=== PATIENT | female | born 1990 | race Caucasian/White ===

== ENCOUNTER 2019-08-27 12:45 | Emergency (ER) | payer MEDICAID ==
[2019-08-27] MEDS ORDERED: ASPIRIN 81 MG TABLET, CHEWABLE PO ONE (13:21)
--- NOTE | 2019-08-27 13:24 | ER Document Report ---
ED Medical Screen (RME) - General Chief Complaint: Palpitations Stated Complaint: HEART PALPITATIONS Time Seen by Provider: 08/27/19 13:21 Mode of Arrival: Ambulatory Information source: Patient Notes: 28-year-old female presented to ED for palpitations that come and go. She states they have been maybe once or twice a day for the last 2 weeks but today she has had a multiple times. She states it feels like her heart is feeling normal and an ultrasound 0 pound will fast real hard to get very dizzy nauseated with a severe headache. 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 She states his medical surgical history is ovarian cyst removal and her tonsils removed she states she does smoke 1 cigarette a day does not drink or use any illicit drugs. She is alert oriented respirations regular and unlabored speaking in full sentences. I have greeted and performed a rapid initial assessment of this patient. A comp rehensive ED assessment and evaluation of the patient, analysis of test results and completion of medical decision making process will be conducted by an additional ED providers. Past Medical History Endocrine Medical History: Denies: Hx Diabetes Mellitus Type 2, Hx Hypothyroidism - Immunizations Hx Diphtheria, Pertussis, Tetanus Vaccination: Yes Physical Exam - Vital signs Vitals: Temp Pulse Resp BP Pulse Ox 98.6 F 72 18 154/103 H 100 08/27/19 12:56 08/27/19 12:56 08/27/19 12:56 08/27/19 12:56 08/27/19 12:56 Course - Vital Signs Vital signs: Temp Pulse Resp BP Pulse Ox 98.6 F 72 18 154/103 H 100 08/27/19 12:56 08/27/19 12:56 08/27/19 12:56 08/27/19 12:56 08/27/19 12:56
--- NOTE | 2019-08-27 14:18 | ER Document Report ---
ED Cardiac - General Chief Complaint: Chest Pain Stated Complaint: HEART PALPITATIONS Time Seen by Provider: 08/27/19 13:21 Primary Care Provider: HELLEN GIBSON MD [ACTIVE STAFF] - Follow up tomorrow Mode of Arrival: Ambulatory - [facility] Notes: Patient is a 28-year-old female that presents to the emergency department for chief complaint of palpitations. Patient reports palpitations over the last 3 weeks. She states that until today they were occurring 1-2 times a day. She states today she has had 4 episodes. She describes it at a pounding sensation in her left chest that lasts for a few seconds. She has associated shortness of breath nausea and lightheadedness. She denied any full syncopal episodes. She states after a few seconds it stops and she feels normal again. Currently patient states she is asymptomatic and not experiencing the symptoms. She states she has been seen at another emergency room about a week ago and told she had a normal EKG. She is currently undergoing chemotherapy for a sarcoma on her leg and states that her last chemo medication was Wednesday. She is not due for repeat chemotherapy until November 2019. She denies cough, congestion, fevers, vomiting, and peripheral edema. Patient does report her sister and mother have blood clots. Past Medical History: Sarcoma Past Surgical History: , ovarian cyst removal Social History: Occasional tobacco. Occasional alcohol. Denies drug use. Family History: Reviewed and noncontributory for presenting illness Allergies: Reviewed, see documented allergy list. REVIEW OF SYSTEMS: CONSTITUTIONAL : No fever No chills No diaphoresis No recent illness EENT: No vision changes No congestion No sore throat CARDIOVASCULAR: No chest pain palpitations RESPIRATORY: shortness of breath No cough No difficulty breathing GASTROINTESTINAL: No abdominal pain nausea No vomiting No diarrhea GENITOURINARY: No dysuria No hematuria No difficulty urinating MUSCULOSKELETAL: No back pain No leg pain No arm pain SKIN: No rashes No lesions LYMPHATIC: No swollen, enlarged glands. NEUROLOGICAL: lightheadedness No headache No weakness No paresthesias PSYCHIATRIC: No anxiety No depression PHYSICAL EXAMINATION: Vital signs reviewed, nursing noted reviewed. GENERAL: Well-appearing, well-nourished and in no acute distress. HEAD: Atraumatic, normocephalic. EYES: Eyes appear normal, extraocular movements intact, sclera anicteric, conjunctiva are normal. ENT: nares patent, oropharynx clear without exudates. Moist mucous membranes. NECK: Normal range of motion, supple without lymphadenopathy LUNGS: Breath sounds clear to auscultation bilaterally and equal. No wheezes rales or rhonchi. HEART: Regular rate and rhythm without murmurs, +2/4 bilateral radial pulses ABDOMEN: Soft, nontender, normoactive bowel sounds. No rebound, guarding, or rigidity. No masses appreciated. EXTREMITIES: Nontender, good range of motion, no pitting or edema. NEUROLOGICAL: No focal neurological deficits. Moves all extremities spont aneously Motor and sensory grossly intact on exam. PSYCH: Normal mood, normal affect. SKIN: Warm, Dry, normal turgor, no rashes or lesions noted on exposed skin - Related Data Allergies/Adverse Reactions: No Known Allergies Allergy (Unverified 08/27/19 16:16) Past Medical History - General Information source: Patient - Social History Smoking Status: Current Some Day Smoker Frequency of alcohol use: None Drug Abuse: None Family History: Reviewed & Not Pertinent Patient has suicidal ideation: No Patient has homicidal ideation: No Endocrine Medical History: Denies: Hx Diabetes Mellitus Type 2, Hx Hypothyroidism - Immunizations Hx Diphtheria, Pertussis, Tetanus Vaccination: Yes Physical Exam - Vital signs Vitals: Temp Pulse Resp BP Pulse Ox 98.6 F 72 18 154/103 H 100 08/27/19 12:56 08/27/19 12:56 08/27/19 12:56 08/27/19 12:56 08/27/19 12:56 Course - Re-evaluation Re-evalutation: 08/27/19 14:18 Vitals reviewed. Nursing notes reviewed. Patient is well-appearing and currently asymptomatic. She is placed on telemetry monitoring. EKG shows no dysrhythmia Wellens or Brugada. Patient is currently undergoing chemotherapy for cancer and has a strong family history of blood clots. She will be screened for PE with d-dimer. My clinical suspicion is low since her symptoms are intermittent and only lasting a few seconds at a time. 08/27/19 17:05 Patient's d-dimer is negative and with a low suspicion I am not currently concern for PE as a cause of her palpitations. She has no electrolyte derangements or renal insufficiency. Patient is not anemic and has no elevated WBC count to suggest infection. She has not had symptoms while in the emergency room and has had no telemetry events. Patient will be referred to Dr. Gibson for Holter monitor placement. She was counseled on vasovagal maneuvers in case her palpitations are secondary to SVT. Patient currently resting comfortably and stable for discharge with further outpatient management. She was also counseled on return precautions and verbalized understanding. Laboratory 08/27/19 08/27/19 08/27/19 14:44 14:44 14:44 WBC 9.9 RBC 4.56 Hgb 12.5 Hct 36.3 MCV 80 MCH 27.4 MCHC 34.4 RDW 12.7 Plt Count 252 Lymph % (Auto) 25.4 Amador % (Auto) 5.6 Eos % (Auto) 1.8 Baso % (Auto) 0.4 Absolute Neuts (auto) 6.6 Absolute Lymphs (auto) 2.5 Absolute Monos (auto) 0.6 Absolute Eos (auto) 0.2 Absolute Basos (auto) 0.0 Seg Neutrophils % 66.8 D-Dimer 0.38 Sodium 139.8 Potassium 3.7 Chloride 105 Carbon Dioxide 27 Anion Gap 8 BUN 11 Creatinine 0.66 Est GFR ( Amer) > 60 Est GFR (MDRD) Non-Af > 60 Glucose 104 Calcium 9.5 Chest X-Ray 08/27/19 13:21 IMPRESSION: No acute radiographic finding in the chest. - Vital Signs Vital signs: Temp Pulse Resp BP Pulse Ox 98.6 F 72 19 134/96 H 95 08/27/19 12:56 08/27/19 12:56 08/27/19 16:01 08/27/19 16:01 08/27/19 16:01 - Laboratory Result Diagrams: 08/27/19 14:44 08/27/19 14:44 - EKG Interpretation by Me Additional EKG results interpreted by me: 08/27/19 14:19 Interpreted by myself 1250: Normal sinus rhythm, rate 76, normal axis, no ectopy, no STEMI, no Wellens or Brugada Discharge - Discharge Clinical Impression: Palpitations Condition: Stable Disposition: HOME, SELF-CARE Instructions: Palpitations (Irregular or Rapid Heartrate) ([facility]) Additional Instructions: Please return to the emergency department if you have any worsening, or concern of your symptoms. Please return to the emergency department if you develop chest pain, difficulty breathing, severe abdominal pain, or ongoing vomiting. Please follow-up with your primary care physician in 2-3 days and any other recommended physicians. If prescribed, take all medications as directed. If you have any questions or concerns do not hesitate to return the emergency department for evaluation. Contact Dr. Gibson's office tomorrow to have Holter monitor placed Referrals: HELLEN GIBSON MD [ACTIVE STAFF] - Follow up tomorrow
--- NOTE | 2019-08-27 14:38 | RADIOLOGY REPORT (SQ) ---
EXAM DESCRIPTION: CHEST 2 VIEWS COMPLETED DATE/TIME: 08/27/2019 2:11 pm REASON FOR STUDY: Palpitations COMPARISON: None. EXAM PARAMETERS: NUMBER OF VIEWS: two views TECHNIQUE: Digital Frontal and Lateral radiographic views of the chest acquired. RADIATION DOSE: NA LIMITATIONS: none FINDINGS: LUNGS AND PLEURA: No consolidation, pneumothorax or pleural effusion. MEDIASTINUM AND HILAR STRUCTURES: No masses or contour abnormalities. HEART AND VASCULAR STRUCTURES: Heart normal size. No evidence for failure. BONES: No acute findings. HARDWARE: None in the chest. IMPRESSION: No acute radiographic finding in the chest. TECHNICAL DOCUMENTATION: JOB ID: [id number] [employer]- All Rights Reserved Reading location - IP/workstation name: [email or web address]
[2019-08-27 14:57] LABS: ABSOLUTE EOSINOPHILS # (AUTO) 0.2 10^3/uL (0.0-0.6); ABSOLUTE LYMPHOCYTES (AUTO) 2.5 10^3/uL (0.5-4.7); ABSOLUTE MONOCYTES (AUTO) 0.6 10^3/uL (0.1-1.4); ABSOLUTE NEUT (AUTO) 6.6 10^3/uL (1.7-8.2); BASOPHILS % (AUTO) 0.4 % (0-2); EOSINOPHILS % (AUTO) 1.8 % (0-6); HEMATOCRIT 36.3 % (36.0-47.0); HEMOGLOBIN 12.5 g/dL (12.0-15.5); LYMPHOCYTES % (AUTO) 25.4 % (13-45); MEAN CORPUSCULAR HEMOGLOBIN 27.4 pg (27.0-33.4); MEAN CORPUSCULAR HGB CONC 34.4 g/dL (32.0-36.0); MEAN CORPUSCULAR VOLUME 80 fl (80-97); MONOCYTES % (AUTO) 5.6 % (3-13); PLATELET COUNT 252 10^3/uL (150-450); RED BLOOD COUNT 4.56 10^6/uL (3.72-5.28); RED CELL DISTRIBUTION WIDTH 12.7 % (11.5-14.0); SEGMENTED NEUTROPHILS % (AUTO) 66.8 % (42-78); TOTAL CELLS COUNTED % (AUTO) 100 %; WHITE BLOOD COUNT 9.9 10^3/uL (4.0-10.5)
[2019-08-27 15:31] LABS: ANION GAP 8 (5-19); BLOOD UREA NITROGEN 11 mg/dL (7-20); CALCIUM 9.5 mg/dL (8.4-10.2); CARBON DIOXIDE 27 mmol/L (22-30); CHLORIDE 105 mmol/L (98-107); GLUCOSE 104 mg/dL (75-110); POTASSIUM 3.7 mmol/L (3.6-5.0)
[2019-08-27 17:31] VITALS: BP 132/74
--- NOTE | 2019-08-27 22:43 | EKG REPORT ---
SEVERITY:- NORMAL ECG - SINUS RHYTHM : Confirmed by: Dana Grewal MD 27-Aug-2019 22:42:09
== END 2019-08-27 17:30 | disposition home or self-care (01) ==
LOC: ER 12:45
DX: R00.2 Palpitations (principal); R07.9 Chest pain, unspecified; C76.50 Malignant neoplasm of unspecified lower limb; F17.200 Nicotine dependence, unspecified, uncomplicated; Z79.899 Other long term (current) drug therapy
CPT/HCPCS: 36415; 71046; 85025; 85379; 93005; 93010; 99285